=== PATIENT | female | born 1995 | race Caucasian/White ===

== ENCOUNTER → 2017-09-19 | Outpatient (CLI) | payer BC ==
[~2017-09-19] MED LIST: GADOBENATE 529MG/1ML 15ML VIAL IVP ONE; IBUP800T37 PO; PER PO
--- NOTE | 2017-09-19 12:17 | RADIOLOGY IMAGING REPORT ---
FACILITY: [facility] PATIENT NAME: Charlotte Hernandez : 1995 MR: [id number] V: [id number] EXAM DATE: ORDERING PHYSICIAN: SYBIL SALEH TECHNOLOGIST: Location: [facility] Patient: Charlotte Hernandez : 1995 Visit/Account:[id number] Date of Sevice: 09/19/2017 BRAIN W W/O CONTRAST Provided history: Arachnoid cyst Additional pertinent history: none TECHNIQUE: Multiplanar multisequence brain MRI was performed without and with intravenous contrast Contrast dose: 13 mL of MultiHance. Additional focused sequences: none COMPARISON STUDIES: None FINDINGS: Brain volume: Normal. There is minor asymmetric prominence of CSF along the anterior margin of the a nterior right temporal lobe precisely isointense to CSF on all sequences. This more likely is benign asymmetry than an arachnoid cyst. Acute ischemia: None Chronic cortical and ganglionic ischemia: none significant Hemorrhage: None Masses / edema: None White matter lesions : Normal Vessels: Normal Extra-axial: Per above Calvarium / scalp: Negative Skull base / infratemporal fossa: negative Visualized sinuses / orbits / upper neck: negative IMPRESSION: Normal MR of the brain. No evidence of mass, acute ischemia or hemorrhage. Minor asymmetry in the right middle cranial fossa is discussed above. This is of doubtful significanc e. Report Dictated By: Mitchell Tee MD at 09/19/2017 12:06 PM Report E-Signed By: Mitchell Tee MD at 09/19/2017 12:13 PM WSN:[id number]
== END ==
LOC: MRI 07:18
PROVIDERS: ATTEND Neurological Surgery
DX: G93.0 Cerebral cysts (principal)
CPT/HCPCS: 70553; A9577

== ENCOUNTER → 2017-10-18 | Outpatient (CLI) | payer BC ==
[~2017-10-18] MED LIST changes: -GADOBENATE 529MG/1ML 15ML VIAL IVP ONE
== END ==
LOC: LAB 12:57
PROVIDERS: ATTEND Psychiatry & Neurology Neurology
DX: E04.9 Nontoxic goiter, unspecified (principal)
CPT/HCPCS: 36415; 84439; 84443; 84481

== ENCOUNTER 2018-05-12 18:55 | Emergency (ER) | payer BC ==
[2018-05-12] MEDS ORDERED: FLUO-177 PO (19:04)
[2018-05-12] MEDS ORDERED: PRI250 FT (19:04)
--- NOTE | 2018-05-12 19:04 | ER Report ---
History and Physical Time Seen By MD: 19:04 Hx. of Stated Complaint: SUICIDAL HPI/ROS CHIEF COMPLAINT: Suicidal ideation HISTORY OF PRESENT ILLNESS: This is a 23-year-old female. She has been feeling suicidal for the last 24 hours. Has a plan of overdosing on medications. Does not have any medicine available to do this at this time. Estimated that 50/50 chance she would commit suicide tonight if she left. She is here with her therapist from [facility]. She has been on Lexapro in the past, but took herself off this because did not think it was working. About a year ago was on Duloxetine, but switched to Fluoxetine which she currently takes. Unsure of dose. She is willing to stay voluntarily. Denies drug use. Rare alcohol use, last about a month ago. Occasional smoking, but not regular. Has an IUD in place. Takes medicine for tremors. No other health problems or medicines. Allergies: Coded Allergies: No Known Drug Allergies (Unverified , 05/12/18) Home Meds Reported Medications Primidone (PRIMIDONE) 250 Mg Tab, 250 MG FT, TAB 05/12/18 Fluoxetine Hcl (FLUOXETINE HCL) 20 Mg Capsule, 20 MG PO QDAY, CAPSULE 05/12/18 Discontinued Scripts Ibuprofen (IBUPROFEN) 800 Mg Tablet, 800 MG PO Q8H, #30 TAB 0 Refills Prov:NEELIMA HAMMOND DO 06/24/17 Oxycodone/Acetaminophen (OXYCODONE/ACETAMINOPHEN 5MG/325 MG) 5 Mg/325 Mg Tab, 0 TAB PO Q4H PRN for PAIN, #30 TAB 0 Refills Prov:NEELIMA HAMMOND DO 06/24/17 Reviewed Nurses Notes: Yes Constitutional Vital Sign - Last 24 Hours 05/12/18 05/12/18 05/12/18 05/12/18 18:55 18:55 18:58 19:00 Temp 98.2 Pulse ? 58 ??? Resp 12 B/P (MAP) 120/78 120/78 (92) Pulse Ox 97 O2 Delivery Room Air 05/12/18 05/12/18 05/12/18 05/12/18 19:00 19:05 19:10 19:10 Pulse 61 60 60 B/P (MAP) 120/78 (92) Pulse Ox 96 94 94 05/12/18 05/12/18 05/12/18 10/15/18 19:15 19:15 19:30 20:56 Pulse 61 54 Resp 12 B/P (MAP) 111/76 (88) 111/76 (88) ???/??? (1665) 100/70 (80) Pulse Ox 94 96 O2 Delivery Room Air Physical Exam General Appearance: The patient is alert, has no immediate need for airway protection and no current signs of toxicity. Eyes: Pupils equal and round no injection. ENT: Normal oral mucosa. Moist mucous membranes. Tympanic membranes are normal. Neck: Neck is supple and non tender. Respiratory: Chest is non tender, lungs are clear to auscultation. Cardiac: regular rate and rhythm Gastrointestinal: Abdomen is soft and non tender, no masses, bowel sounds normal. Musculoskeletal: Extremities have full range of motion. Non tender. Skin: No rashes or lesions. DIFFERENTIAL DIAGNOSIS: After history and physical exam differential diagnosis was considered for depression with suicidal ideation, and needs to be admitted but willing to come in voluntarily Medical Decision Making Data Points Result Diagram: 05/12/18192605/12/181926 Laboratory Hematology Test 05/12/18 19:27 Red Blood Count 5.07 M/uL (4.17-5.56) Mean Corpuscular Volume 91.3 fL (80.0-96.0) Mean Corpuscular Hemoglobin 30.9 pg (26.0-33.0) Mean Corpuscular Hemoglobin Concent 33.9 g/dL (32.0-36.0) Red Cell Distribution Width 15.2 % (11.5-14.5) Mean Platelet Volume 9.2 fL (7.2-11.1) Neutrophils (%) (Auto) 47.1 % (39.4-72.5) Lymphocytes (%) (Auto) 41.9 % (17.6-49.6) Monocytes (%) (Auto) 9.9 % (4.1-12.4) Eosinophils (%) (Auto) 0.8 % (0.4-6.7) Basophils (%) (Auto) 0.3 % (0.3-1.4) Nucleated RBC Relative Count (auto) 0.1 /100WBC Neutrophils # (Auto) 4.3 K/uL (2.0-7.4) Lymphocytes # (Auto) 3.8 K/uL (1.3-3.6) Monocytes # (Auto) 0.9 K/uL (0.3-1.0) Eosinophils # (Auto) 0.1 K/uL (0.0-0.5) Basophils # (Auto) 0.0 K/uL (0.0-0.1) Nucleated RBC Absolute Count (auto) 0.01 K/uL Urine Color Yellow Urine Clarity Clear Urine pH 7.0 pH (4.8-9.5) Urine Specific [place] 1.018 Urine Protein Negative mg/dL (NEGATIVE) Urine Glucose (UA) Negative mg/dL (NEGATIVE) Urine Ketones Negative mg/dL (NEGATIVE) Urine Blood Negative (NEGATIVE) Urine Nitrite Negative (NEGATIVE) Urine Bilirubin Negative (NEGATIVE) Urine Urobilinogen Negative mg/dL (0.2-1.9) Urine Leukocyte Esterase Negative (NEGATIVE) Urine RBC None /HPF (0-2/HPF) Urine WBC <1 /HPF (0-5/HPF) Urine Squamous Epithelial Cells Many /LPF (</=FEW) Urine Bacteria Negative /HPF (NONE-FEW) Urine Mucus None /HPF (NONE-FEW) Urine HCG, Qualitative Negative (NEGATIVE) Sodium Level 138 mmol/L (137-145) Potassium Level 3.8 mmol/L (3.5-5.0) Chloride Level 99 mmol/L (98-107) Carbon Dioxide Level 27 mmol/L (22-31) Blood Urea Nitrogen 17 mg/dl (7-18) Creatinine 0.70 mg/dl (0.52-1.04) Glomerular Filtration Rate Calc > 60.0 Random Glucose 109 mg/dl (75-110) Calcium Level 9.4 mg/dl (8.4-10.2) Magnesium Level 1.9 mg/dl (1.7-2.2) Total Bilirubin 0.4 mg/dl (0.2-1.3) Aspartate Amino Transf (AST/SGOT) 21 U/L (0-35) Alanine Aminotransferase (ALT/SGPT) 23 U/L (0-56) Alkaline Phosphatase 69 U/L (0-126) Total Protein 7.8 g/dl (6.3-8.2) Albumin 4.5 g/dl (3.5-5.0) Salicylates Level < 10 mg/L Salicylate Last Dose Date Unk Urine Opiates Screen Negative Acetaminophen Level < 10 ug/ml Urine Barbiturates Screen Positive Ur Tricyclic Antidepressants Screen Negative Urine Phencyclidine Screen Negative Urine Amphetamines Screen Negative Urine Benzodiazepines Screen Negative Urine Cocaine Screen Negative Urine Cannabinoids Screen Negative Serum Alcohol < 10 mg/dl Chemistry Test 05/12/18 19:27 White Blood Count 9.1 k/uL (4.5-11.0) Red Blood Count 5.07 M/uL (4.17-5.56) Hemoglobin 15.7 g/dL (12.0-16.0) Hematocrit 46.3 % (34.0-47.0) Mean Corpuscular Volume 91.3 fL (80.0-96.0) Mean Corpuscular Hemoglobin 30.9 pg (26.0-33.0) Mean Corpuscular Hemoglobin Concent 33.9 g/dL (32.0-36.0) Red Cell Distribution Width 15.2 % (11.5-14.5) Platelet Count 226 K/uL (150-450) Mean Platelet Volume 9.2 fL (7.2-11.1) Neutrophils (%) (Auto) 47.1 % (39.4-72.5) Lymphocytes (%) (Auto) 41.9 % (17.6-49.6) Monocytes (%) (Auto) 9.9 % (4.1-12.4) Eosinophils (%) (Auto) 0.8 % (0.4-6.7) Basophils (%) (Auto) 0.3 % (0.3-1.4) Nucleated RBC Relative Count (auto) 0.1 /100WBC Neutrophils # (Auto) 4.3 K/uL (2.0-7.4) Lymphocytes # (Auto) 3.8 K/uL (1.3-3.6) Monocytes # (Auto) 0.9 K/uL (0.3-1.0) Eosinophils # (Auto) 0.1 K/uL (0.0-0.5) Basophils # (Auto) 0.0 K/uL (0.0-0.1) Nucleated RBC Absolute Count (auto) 0.01 K/uL Urine Color Yellow Urine Clarity Clear Urine pH 7.0 pH (4.8-9.5) Urine Specific [place] 1.018 Urine Protein Negative mg/dL (NEGATIVE) Urine Glucose (UA) Negative mg/dL (NEGATIVE) Urine Ketones Negative mg/dL (NEGATIVE) Urine Blood Negative (NEGATIVE) Urine Nitrite Negative (NEGATIVE) Urine Bilirubin Negative (NEGATIVE) Urine Urobilinogen Negative mg/dL (0.2-1.9) Urine Leukocyte Esterase Negative (NEGATIVE) Urine RBC None /HPF (0-2/HPF) Urine WBC <1 /HPF (0-5/HPF) Urine Squamous Epithelial Cells Many /LPF (</=FEW) Urine Bacteria Negative /HPF (NONE-FEW) Urine Mucus None /HPF (NONE-FEW) Urine HCG, Qualitative Negative (NEGATIVE) Glomerular Filtration Rate Calc > 60.0 Calcium Level 9.4 mg/dl (8.4-10.2) Magnesium Level 1.9 mg/dl (1.7-2.2) Total Bilirubin 0.4 mg/dl (0.2-1.3) Aspartate Amino Transf (AST/SGOT) 21 U/L (0-35) Alanine Aminotransferase (ALT/SGPT) 23 U/L (0-56) Alkaline Phosphatase 69 U/L (0-126) Total Protein 7.8 g/dl (6.3-8.2) Albumin 4.5 g/dl (3.5-5.0) Salicylates Level < 10 mg/L Salicylate Last Dose Date Unk Urine Opiates Screen Negative Acetaminophen Level < 10 ug/ml Urine Barbiturates Screen Positive Ur Tricyclic Antidepressants Screen Negative Urine Phencyclidine Screen Negative Urine Amphetamines Screen Negative Urine Benzodiazepines Screen Negative Urine Cocaine Screen Negative Urine Cannabinoids Screen Negative Serum Alcohol < 10 mg/dl Toxicology Test 05/12/18 19:27 Salicylates Level < 10 mg/L Salicylate Last Dose Date Unk Urine Opiates Screen Negative Acetaminophen Level < 10 ug/ml Urine Barbiturates Screen Positive Ur Tricyclic Antidepressants Screen Negative Urine Phencyclidine Screen Negative Urine Amphetamines Screen Negative Urine Benzodiazepines Screen Negative Urine Cocaine Screen Negative Urine Cannabinoids Screen Negative Serum Alcohol < 10 mg/dl Urinalysis Test 05/12/18 19:27 Urine Color Yellow Urine Clarity Clear Urine pH 7.0 pH (4.8-9.5) Urine Specific [place] 1.018 Urine Protein Negative mg/dL (NEGATIVE) Urine Glucose (UA) Negative mg/dL (NEGATIVE) Urine Ketones Negative mg/dL (NEGATIVE) Urine Blood Negative (NEGATIVE) Urine Nitrite Negative (NEGATIVE) Urine Bilirubin Negative (NEGATIVE) Urine Urobilinogen Negative mg/dL (0.2-1.9) Urine Leukocyte Esterase Negative (NEGATIVE) Urine RBC None /HPF (0-2/HPF) Urine WBC <1 /HPF (0-5/HPF) Urine Squamous Epithelial Cells Many /LPF (</=FEW) Urine Bacteria Negative /HPF (NONE-FEW) Urine Mucus None /HPF (NONE-FEW) Urine HCG, Qualitative Negative (NEGATIVE) ED Course/Re-evaluation ED Course Drug screen positive for barbiturates. Negative alcohol, salicylates, Tylenol. Other labs unremarkable. Discussed with Dr. Matta who accepted the patient for admission Decision to Disposition Date: May 12, 2018 Decision to Disposition Time: 20:20 Depart Departure Latest Vital Signs Vital Signs Date Time Temp Pulse Resp B/P (MAP) Pulse Ox O2 Delivery O2 Flow Rate FiO2 05/12/18 20:56 54 12 100/70 (80) 96 Room Air 05/12/18 18:58 98.2 Impression: Primary Impression: Suicidal ideation Additional Impression: Depression Condition: Condition Unchanged Disposition: XFER TO [facility] Problem Qualifiers Additional Impression: Depression Depression Type: unspecified Qualified Codes: F32.9 - Major depressive disorder, single episode, unspecified LUKE LANIER MD May 12, 2018 19:04
[2018-05-12 19:34] LABS: PLATELET COUNT, AUTOMATED 226 K/uL (150-450)
[2018-05-12 20:56] VITALS: BP 100/70
== END 2018-05-12 21:18 ==
LOC: ER 19:21
DX: R45.851 Suicidal ideations (principal)
CPT/HCPCS: 36415; 80305; 80320; 80329; 81001; 81025; 82040; 82247; 82310; 82374; 82435; 82565; 82947; 83735; 84075; 84132; 84155; 84295; 84443; 84450; 84460; 84520; 85025; 99284

== ENCOUNTER 2018-05-12 20:53 | Inpatient (IN) | payer BC ==
[~2018-05-12] VITALS: Ht 162.6 cm; Wt 68.0 kg
[~2018-05-12 20:53] MED LIST changes: +FLUO-177 PO; +PRI250 FT
[2018-05-12] MEDS ORDERED: ACETAMINOPHEN 325 MG TAB PO PRN ×2 (21:20→22:05)
[2018-05-12] MEDS ORDERED: MAG HYD/AL HYD/SIMETH 30ML UDC PO PRN ×2 (21:20→22:05)
[2018-05-12] MEDS ORDERED: NICOTINE CARTRIDGE 1 EA PO PRN (21:20)
[2018-05-12] MEDS ORDERED: NICOTINE INH SYSTEM 10 MG/INH INH PRN (21:20)
[2018-05-12] MEDS ORDERED: LORazepam 1 MG TAB PO ONE (22:10)
[2018-05-12 22:25] VITALS: BP 108/80
[2018-05-12 22:30] VITALS: BP 108/80
[2018-05-13 03:00] VITALS: BP 113/75
[2018-05-13] MEDS: MULTIVITAMINS TAB PO SCH (08:13)
[2018-05-13] MEDS ORDERED: MULTIVITAMINS TAB PO SCH (09:00)
[2018-05-13] MEDS: CHOLECALCIFEROL 1000 UNIT TAB PO SCH (11:33)
[2018-05-13] MEDS: buPROPion SR 150 MG TABCR PO SCH (11:33)
[2018-05-13] MEDS ORDERED: hydrOXYzine PAMOATE 25 MG CAP PO PRN (18:10)
[2018-05-13] MEDS ORDERED: PRIMIDONE 250 MG TAB PO SCH (21:00)
[2018-05-14 03:14] VITALS: BP 105/71
[2018-05-14] MEDS: CHOLECALCIFEROL 1000 UNIT TAB PO SCH (08:14)
[2018-05-14] MEDS: MULTIVITAMINS TAB PO SCH (08:14)
[2018-05-14] MEDS: buPROPion SR 150 MG TABCR PO SCH (08:14)
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
[2018-05-14] MEDS: FLUoxetine HCL 20 MG CAP PO SCH (08:45)
[2018-05-14] MEDS ORDERED: buPROPion SR 150 MG TABCR PO SCH (12:00)
--- NOTE | 2018-05-14 13:32 | BHS Progress Note ---
[facility] - Subjective Progress Notes Subjective Patient depression somewhat better today. Due to possible depression complications of medication for tremor, patient is willing to taper and discontinue at this time. Appetite and sleep intact. Will consider increasing Wellbutrin in AM as well. Will continue treatment. Suicidal Ideation: Resolving Homicidal Ideation: None [facility] - Objective Physical Exam Vital Signs Vital Signs Date Time Temp Pulse Resp B/P (MAP) Pulse Ox O2 Delivery O2 Flow Rate FiO2 05/14/18 03:14 97.4 63 15 105/71 (82) 95 Room Air Muscle Strength and Tone: WNL Gait and Station: Steady [facility] Medications Reviewed: Side Effects, Benefits of Medication, Risks Allergies Reviewed: Yes Mental Status Exam General Appearance: Casual, Well Groomed, Good Eye Contact, Cooperative, Polite, Good Interaction; No Tearful, No Psychomotor Agitation; Psychomotor Retardation; No Bizarre Mannerisms, No Tics Speech: Clear, Spontaneous, Normal Rate, Normal Rhythm, Normal Volume, Normal Tone; No Rambling, No Inappropriate Mood: Dysthmic/Depressed (some imnprovement) Affect: Calm, Withdrawn; No Anxious, No Agitated Thought Process: Organized, Logical, Goal Directed; No Loose Associations, No Flight of Ideas Thought Content: Suicidal Ideation (resolving); No Homicidal Ideation, No Delusions, No Auditory Halllucinations, No Visual Hallucinations, No Thought Broadcasting, No Ideas of Reference, No Obsessions, No Compulsions Sensorium: Clear Cognition: Alert & Oriented-Person, Alert & Oriented-Place, Alert & Oriented- Time, Gvcum-Cjschsoc-Trnyhutmy Memory: Immediate, Recent, Remote Intelligence: Average Insight Judgment: Fair (improving) [facility] Assessment and Plan [id number] Encounter Date: May 14, 2018 [id number] Encounter Time: 10:00 Multpiple Antipsychotics Used: No Problems: (1) Major depression, recurrent Status: Chronic Condition 1. continue treatment. 2. taper primidone and discontinue. 3. consider increase in wellbutrin. Problem Qualifiers (1) Major depression, recurrent: Active/Remission status: currently active Major depression episode severity: moderate Qualified Codes: F33.1 - Major depressive disorder, recurrent, moderate JOSE ANTONIO GENAO MD May 14, 2018 13:32
[2018-05-14] MEDS ORDERED: PRIMIDONE 250 MG TAB PO SCH (21:00)
[2018-05-15 05:45] VITALS: BP 101/65
[2018-05-15] MEDS: CHOLECALCIFEROL 1000 UNIT TAB PO SCH (08:31)
[2018-05-15] MEDS: FLUoxetine HCL 20 MG CAP PO SCH (08:31)
[2018-05-15] MEDS: MULTIVITAMINS TAB PO SCH (08:31)
[2018-05-15] MEDS ORDERED: MULT-1379 PO (08:40)
[2018-05-15] MEDS ORDERED: CHOL10005 PO (08:40)
[2018-05-15] MEDS ORDERED: BUPR-126 PO (08:41)
[2018-05-15] MEDS ORDERED: NICOTROL INHALER PO (08:42)
[2018-05-15] MEDS ORDERED: NIC10R INH (08:42)
[2018-05-15] MEDS ORDERED: HYDR25CA83 PO (08:43)
[2018-05-15] MEDS ORDERED: buPROPion SR 150 MG TABCR PO SCH (09:00)
--- NOTE | 2018-05-16 21:10 | SCHAAF DISCHARGE ---
DATE OF ADMISSION: May 12, 2018 DATE OF DISCHARGE: May 15, 2018 ATTENDING PHYSICIAN Angel Matta MD Patient was seen at approximately 0830 hours on 15 May 2018 for note concerning this dictation. FINAL DIAGNOSES 1. Major depression, recurrent, moderate. 2. Patient known to have supportive family. REASON FOR ADMISSION This is a very pleasant, 23-year-old female who has been suffering depressive symptoms for quite some time. Please see H and P for full details. Patient admitted voluntarily, known to take an active role in her treatment from the start and throughout her stay. Patient was found to be on Primidone for familial tremor. This may be related to patient's depressive symptoms. Primidone started during the summer months. Patient did mention that she noticed on days she would miss her dose of Primidone, her depression would lift somewhat. Patient has a history of some seasonal affective depressive type symptoms as well. Patient participated again well on the unit, responded to light therapy and medication changes. Patient's suicidal ideation resolved. Patient met with mother on the unit, and patient was discharged to home. PHYSICAL EXAMINATION Please see emergency room note. Notable for: GENERAL: A 23-year-old female. No acute medical distress. Depressed appearing. VITAL SIGNS: Vital signs at time of admission: Temperature 98.2, pulse 58 and low, respiratory rate 12, blood pressure 120/78, and pulse oximetry 97% on room air. At time of discharge from [facility], vital signs showed temperature 97.9, pulse 60, respiratory rate 15, blood pressure 101/65, and pulse oximetry 97% on room air. LABORATORY DATA Free T4 noted to be 1.02, free T3 of 2.8, both in normal range. TSH 1.01, within normal range. CMP unremarkable. CBC unremarkable. Urinalysis unremarkable as well. screen negative. Toxicology screen positive for barbiturates. This is a metabolite of Primidone, which patient is prescribed. Negative for other substances of abuse and an undetectable serum alcohol level. MENTAL STATUS EXAMINATION AT TIME OF DISCHARGE GENERAL APPEARANCE, BEHAVIOR, AND ATTITUDE: This cooperative, polite, 23-year-old female is making good eye contact. No bizarre mannerisms or tics. No psychomotor agitation or retardation. No periods of tearfulness. SPEECH: Within normal limits. Regular rate, rhythm, volume, and tone. MOOD: Described as improved. AFFECT: Full and bright. THOUGHT PROCESSES: Logical, goal directed. No loose associations or flight of ideas. THOUGHT CONTENT: Free of auditory or visual hallucinations, ideas of reference, thought broadcastings, delusions, obsessions, compulsions. Patient adamantly denying suicidal or homicidal ideation. SENSORIUM: Clear. COGNITION: Alert and oriented to person, place, time, and situation. MEMORY: Immediate, recent, remote estimated intact. INTELLIGENCE: Average based on interview. INSIGHT AND JUDGMENT: Considered grossly intact. RESULTS OF TESTING Imaging: None. Laboratory data: See above. CONSULTATIONS None. TREATMENT Patient received medications, participated in individual and group therapy. HOSPITAL COURSE Patient took a very active role throughout her stay. Medications were changed somewhat. Primidone was discontinued, and Wellbutrin SR was titrated to 150 mg q.a.m. Fluoxetine was continued at 60 mg q.a.m. Patient continued to improve. Patient took an active role in individual and group therapy. CONDITION OF PATIENT ON DISCHARGE Stable. Considered a minimal risk to herself or others and appropriate for ongoing outpatient care. DISPOSITION The patient discharged to home in care of her mother. She would follow up with outpatient medication management and therapy as scheduled. Crisis line was given should symptoms return. Patient encouraged to stop smoking. Patient would followup with outpatient providers for further evaluation of thyroid condition in this patient with some hypothyroid symptoms as well as low normal range thyroid labs. Patient was given the crisis line should symptoms return. DISCHARGE MEDICATIONS 1. Prozac 60 mg daily. 2. Multivitamin with minerals daily. 3. Vitamin D3 at 1000 International Units daily. 4. Wellbutrin SR 150 mg q.a.m., and after one week, patient could increase to 150 mg q. noon as well if necessary. 5. Could take Vistaril 25 to 50 mg p.o. q.6 hours for anxiety and insomnia. 6. Patient would stop Primidone. The risks, benefits, and alternatives of the above discharge plan were discussed. Informed consent was given to proceed with the above discharge plan by this competent patient and patient's mother present at time of discharge. MARIE
== END 2018-05-15 16:07 | disposition home or self-care (01) | DRG 885 ==
LOC: BHS 20:53
PROVIDERS: ADMIT Psychiatry & Neurology Psychiatry; ATTEND Psychiatry & Neurology Psychiatry
DX: F33.1 Major depressive disorder, recurrent, moderate (principal); R45.851 Suicidal ideations; T42.6X5A Adverse effect of other antiepileptic and sedative-hypnotic drugs, initial encounter; G47.00 Insomnia, unspecified; E03.9 Hypothyroidism, unspecified; F41.0 Panic disorder [episodic paroxysmal anxiety]; R25.1 Tremor, unspecified; Z81.8 Family history of other mental and behavioral disorders; Z81.1 Family history of alcohol abuse and dependence
CPT/HCPCS: 84439; 84481